=== PATIENT | female | born 1985 | race American Indian/Alaskan Native ===

== ENCOUNTER 2018-10-05 21:23 | Emergency (ER) | payer OTHER ==
[2018-10-05 21:47] VITALS: BP 105/56
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
== END 2018-10-05 23:20 | disposition home or self-care (01) ==
LOC: ED 21:23
DX: M25.531 Pain in right wrist (principal); Z79.899 Other long term (current) drug therapy; V43.52XA Car driver injured in collision with other type car in traffic accident, initial encounter; Y93.89 Activity, other specified; Y92.481 Parking lot as the place of occurrence of the external cause; Y99.8 Other external cause status
CPT/HCPCS: 99283